=== PATIENT | female | born 1980 | race African-American/Black ===

== ENCOUNTER 2019-01-07 07:12 | Emergency (ER) | payer SELFPAY ==
[2019-01-07] MEDS ORDERED: Proparacaine 0.5% Opth 15 ML BOT ONE (07:38)
== END 2019-01-07 07:52 | disposition home or self-care (01) ==
LOC: ERS 07:12
DX: H10.9 Unspecified conjunctivitis (principal); F32.9 Major depressive disorder, single episode, unspecified; Z87.891 Personal history of nicotine dependence
CPT/HCPCS: 99283

== ENCOUNTER 2019-02-24 09:09 | Emergency (ER) | payer SELFPAY ==
[2019-02-24] MEDS ORDERED: predniSONE 20 MG TAB ONE (09:47)
--- NOTE | 2019-02-24 10:07 | RAD ---
XR Chest 1 View Portable HISTORY: Dyspnea, cough COMPARISON: 04/27/2016 FINDINGS: The heart size is normal. The lungs are well expanded without focal areas of consolidation, pneumothorax or pleural effusions. IMPRESSION: No radiographic evidence of acute cardiopulmonary process.
== END 2019-02-24 10:39 | disposition home or self-care (01) ==
LOC: ERS 09:09
DX: J18.9 Pneumonia, unspecified organism (principal); F32.9 Major depressive disorder, single episode, unspecified; Z87.891 Personal history of nicotine dependence
CPT/HCPCS: 71045; 94640; J7512; J7620

== ENCOUNTER 2019-05-04 11:45 | Emergency (ER) | payer SELFPAY | END 2019-05-04 14:18 | disposition home or self-care (01) | LOC: ERS 11:45 | DX: J06.9 Acute upper respiratory infection, unspecified (principal); F32.9 Major depressive disorder, single episode, unspecified; Z87.891 Personal history of nicotine dependence | CPT/HCPCS: 99281 ==

== ENCOUNTER 2021-04-26 08:51 | Emergency (ER) | payer SELFPAY ==
[2021-04-26] MEDS ORDERED: GUAIFENESIN SF SOLN 200 MG/10 ML UDCUP PO SCH (10:15)
[2021-04-26 23:40] LABS: SARS-CoV-2 PCR by NAA DETECTED (NotDetected)
== END 2021-04-26 11:01 | disposition home or self-care (01) ==
LOC: ERS 08:51
DX: U07.1 COVID-19 (principal); J45.909 Unspecified asthma, uncomplicated; J00 Acute nasopharyngitis [common cold]; Z87.891 Personal history of nicotine dependence
CPT/HCPCS: 71045; U0003; U0005

== ENCOUNTER 2021-12-04 19:09 | Emergency (ER) | payer OTHER, SELFPAY ==
[2021-12-04] MEDS ORDERED: predniSONE 20 MG TAB ONE (20:08)
[2021-12-04] MEDS ORDERED: diphenhydrAMINE 25 MG CAP ONE (20:08)
== END 2021-12-04 20:18 | disposition home or self-care (01) ==
LOC: ERS 19:09
DX: L30.9 Dermatitis, unspecified (principal); Z87.891 Personal history of nicotine dependence
CPT/HCPCS: 99283; J7512

== ENCOUNTER 2022-08-08 08:50 | Emergency (ER) | payer SELFPAY ==
[2022-08-08 10:09] LABS: #Eosinphils 0.1 thou/uL (0.0-0.7); #Lymphocytes 2.1 thou/uL (1.20-3.40); #Monocytes 0.8 thou/uL (0.11-0.59); #Neutrophils 4.1 thou/uL (1.40-6.50); %Eosinophils 1.3 % (0.0-10.0); %Lymphocytes 29.7 % (21.0-51.0); %Monocytes 11.2 % (0.0-10.0); %Neutrophils 57.8 % (42.0-75.0); Hemoglobin 10.6 g/dL (12.0-16.0); Mean Corpuscular Hemoglobin 25.9 pg (27.0-31.0); Mean Corpuscular Volume 78.4 fl (78.0-98.0); Mean Platelet Volume 7.1 fL (7.4-10.4); Platelet Count 413 10x3/uL (130-400); RBC Distribution Width 16.3 % (11.5-14.5); Red Blood Cell (RBC) Count 4.09 mill/uL (4.20-5.40); White Blood Cell (WBC) Count 7.2 10x3/uL (4.8-10.8)
[2022-08-08 10:21] LABS: ALT (SGPT) 13 U/L (8-55); AST (SGOT) 16 U/L (5-34); Albumin 4.2 g/dL (3.5-5.0); Alkaline Phosphatase 56 U/L (40-110); Anion Gap 22 mmol/L (10-20); BUN (Urea Nitrogen) 7 mg/dL (7.0-18.7); Bilirubin, Total 0.5 mg/dL (0.2-1.2); Calc. Creatinine Clearance 0 mL/min (70-130); Calcium 9.3 mg/dL (7.8-10.44); Carbon Dioxide 20 mmol/L (22-29); Chloride 100 mmol/L (98-107); Estimated GFR 74; Globulin 3.6 g/dL (2.4-3.5); Glucose 121 mg/dL (70-105); Lipase 25 U/L (8-78); Potassium 3.7 mmol/L (3.5-5.1); Protein, Total 7.8 g/dL (6.0-8.3); Sodium 138 mmol/L (136-145)
[2022-08-08 10:24] LABS: BHCG - Serum Negative (NEGATIVE); Pregs Control Background? CLEAR/WHITE (CLR/WHITE); Pregs Control Bar Appear? YES (CONTROL BAR)
[2022-08-08 10:35] LABS: Bilirubin Negative (Negative); Blood, Urine 3+ (Negative); Clarity Turbid (Clear); Glucose, Urine (Dipstick) Normal (Negative); Ketone, Urine Negative (Negative); Leukocyte Negative Leu/uL (Negative); Nitrite Negative (Negative); Protein, Urine (Dipstick) 50 mg/dL (Neg-Trace); RBC/HPF Greater than 50 HPF (0-3); Squamous Epithelial 0-3 HPF (0-3); WBC/HPF 0-3 HPF (0-3); pH, Urine 5.5 (5.0-9.0)
[2022-08-08 10:36] LABS: Bacteria/HPF 1+ HPF (None Seen)
== END 2022-08-08 11:55 | disposition home or self-care (01) ==
LOC: ERS 08:50
DX: N92.6 Irregular menstruation, unspecified (principal); Z87.891 Personal history of nicotine dependence
CPT/HCPCS: 36415; 76856; 80053; 81003; 81015; 83690; 84703; 85025; 86900; 86901